=== PATIENT | female | born 1950 | race Caucasian/White ===

== ENCOUNTER 2016-12-29 17:57 | Emergency (ER) | payer OTHER ==
[~2016-12-29] VITALS: Ht 165.1 cm; Wt 82.3 kg
[~2016-12-29 17:57] MED LIST: ATROVENT H200 INHALA IH; BACTRIM,SEPT1 TABLET PO; CALCIUM CITR1 TABLET PO; CENTRUM SILVER1 EAC3 PO; CHILD ASPIRIN81 M1 PO; DESYREL100 MG PO; FUROSEMIDE20 MG PO; KAON-CL 1010 MEQ PO; KLOR-CON 1010 ME1 PO; MEVACOR10 MG PO; MEVACOR20 MG PO; NEURONTIN100 MG PO; NORVASC10 MG PO; NORVASC5 MG PO; OLEPTRO ER150 MG PO; PERCOCET 5/31 TABLET PO; PRILOSEC20 MG PO; PROTONIX20 MG PO; RIVASTIGMINE1.5 MG PO; SYMBICORT60 INHALAT IH; ULTRAM50 MG PO; VENTOLIN HFA18 GM IH; VITAMIN C + RO500 MG PO
[2016-12-29 18:44] LABS: HEMATOCRIT 43.1 % (36.0-46.0); MCH 25.7 PG (29.0-34.0); MCHC 32.3 G/DL (30.0-36.0); MCV 79.8 FL (83-99); MEAN PLAT.VOLUME 9.1 uM^3 (9.5-12.4); PLATELET COUNT 303 K/uL (156-360); RBC DIS.WIDTH-CV 14.3 % (11.8-14.6); RBC DIS.WIDTH-SD 41.4 % (39-53); WHITE BLOOD COUNT 4.2 K/uL (4.1-10.2)
[2016-12-29 18:55] LABS: CHLORIDE 105 mEq/L (99-109); POTASSIUM 3.8 mEq/L (3.7-5.4); SODIUM 140 mEq/L (136-147)
[2016-12-29 18:57] LABS: GLUCOSE 120 mg/dL (70-99)
[2016-12-29 18:58] LABS: ANION GAP 12 MEQ/L (2-14)
[2016-12-29 19:00] LABS: GFR ESTIMATE (CALCULATED) 44 mL/min/
[2016-12-29 19:01] LABS: UREA NITROGEN (BUN) 13 mg/dL (9-23)
[2016-12-29 21:39] LABS: INFLUENZA A VIRAL ANTIGEN POSITIVE; INFLUENZA B VIRAL ANTIGEN NEGATIVE
[2016-12-29] MEDS ORDERED: TAMIFLU75 MG PO (21:42)
[2016-12-29 21:57] VITALS: BP 131/73
== END 2016-12-29 21:59 | disposition home or self-care (01) ==
LOC: EME 17:57
PROVIDERS: Nurse Practitioner Family
DX: J10.1 Influenza due to other identified influenza virus with other respiratory manifestations (principal); R11.10 Vomiting, unspecified; J44.9 Chronic obstructive pulmonary disease, unspecified; E78.5 Hyperlipidemia, unspecified; I10 Essential (primary) hypertension; Z86.73 Personal history of transient ischemic attack (TIA), and cerebral infarction without residual deficits; Z79.82 Long term (current) use of aspirin; Z87.891 Personal history of nicotine dependence
CPT/HCPCS: 71020; 80048; 85027; 87502; 94640; 99281; 99284; J7512

== ENCOUNTER → 2017-03-21 | Outpatient (CLI) | payer OTHER ==
[~2017-03-21] MED LIST changes: +TAMIFLU75 MG PO
== END | disposition home or self-care (01) ==
LOC: RAD 14:44 → EDSTATUS 15:00 → RAD 15:00
DX: N39.43 Post-void dribbling (principal)
CPT/HCPCS: 74430